=== PATIENT | female | born 2000 | race African-American/Black ===

== ENCOUNTER 2020-09-04 13:56 | Observation (INO) | payer MEDICAID ==
[~2020-09-04] VITALS: Ht 172.7 cm; Wt 71.0 kg
[~2020-09-04 13:56] MED LIST: PROM25AM6 PO
[2020-09-04] MEDS ORDERED: LORazepam 2 MG/ML, 1ML IVPush ONE (14:00)
[2020-09-04] MEDS ORDERED: SODIUM CHLORIDE FLUSH 10ML SYR IVF ONE (14:00)
[2020-09-04] MEDS ORDERED: LORazepam 2 MG/ML, 1ML ONE ×2 (14:07→14:26)
--- NOTE | 2020-09-04 14:09 | NUR ---
REPORT FROM BEAR STALLINGS BIB [facility] AFTER WITNESSED SEIZURE APPROX 3 MIN. PT HAS HX OF SEIZURES AND HAS SEEN NEUROLOGY HOWEVER IS NOT ON ANY ANTI SEIZURE MEDICATIONS AND IS USING [place]. PT IS NOT RESPONDING AT THIS TIME AND DOES NOT FOLLOW COMMANDS. VSS, SPO2 100% ON 2L, O2 TURNED OFF AT THIS TIME. BOYFRIEND AT BEDSIDE. PT ON MONITOR. NO NEEDS AT THIS TIME.
--- NOTE | 2020-09-04 14:27 | NUR ---
STRAIGHT CATH DONE WITH INTERMODAL DISPATCHERLUDWIG TAMEZ, SAMPLE WALKED TO LAB
[2020-09-04 14:28] LABS: BASOPHILS % (AUTO) 1 % (0-1); EOSINOPHILS % (AUTO) 0 % (1-7); LYMPHOCYTES % (AUTO) 38 % (22-44); MEAN CORPUSCULAR HEMOGLOBIN 29.5 pg (27.0-34.8); MEAN CORPUSCULAR HGB CONC 32.5 g/dL (32.4-35.8); MEAN PLATELET VOLUME 12.2 fL (7.4-10.4); MONOCYTES % (AUTO) 8 % (2-9); NEUTROPHILS % (AUTO) 53 % (42-75); PLATELET COUNT 140 x10^3/uL (130-400); RED BLOOD COUNT 4.43 x10^6/uL (3.82-5.3); RED CELL DISTRIBUTION WIDTH 12.9 % (9.6-15.2)
[2020-09-04 14:42] LABS: ALANINE AMINOTRANSFERASE 18 U/L (12-78); ALBUMIN 3.8 g/dL (3.4-5.0); ANION GAP 3 mmol/L (5-15); CALCIUM 9.6 mg/dL (8.5-10.1); CHLORIDE 110 mmol/L (98-107)
--- NOTE | 2020-09-04 14:45 | NUR ---
PT BEGINNING TO AROUSE, PT LOOKED AT RN AND ABLE TO STATE NAME AND THAT SHE DOES NOT KNOW WHERE SHE IS
[2020-09-04 14:47] LABS: ALKALINE PHOSPHATASE 79 U/L (45-117); BILIRUBIN,TOTAL 0.7 mg/dL (0.2-1.0); CREATININE 0.97 mg/dL (0.55-1.02); TOTAL PROTEIN 8.6 g/dL (6.4-8.2)
[2020-09-04 14:54] LABS: MICROSCOPIC NOT IND
[2020-09-04 14:55] LABS: SALICYLATE LEVEL < 1.7 mg/dL (2.8-20.0)
--- NOTE | 2020-09-04 15:04 | NUR ---
PT TO CT
[2020-09-04 15:07] LABS: AMPHETAMINE SCREEN, URINE Negative (Negative); BARBITURATE SCREEN, URINE Negative (Negative); BENZODIAZEPINE SCREEN, URINE Positive (Negative); CANNABINOID SCREEN, URINE Positive (Negative); COCAINE SCREEN, URINE Negative (Negative); METHADONE SCREEN, URINE Negative (Negative); OPIATE SCREEN, URINE Negative (Negative)
[2020-09-04 15:09] LABS: <PLATELET ESTIMATE> ADEQUATE; <RBC MORPHOLOGY> NORMAL; LARGE PLATELETS 1+; MD MORPH REVIEW ONLY
--- NOTE | 2020-09-04 15:21 | NUR ---
PT RETURNED FROM CT ON 2LNC, SPO2 100%. PT TAKEN OFF O2 AGAIN
--- NOTE | 2020-09-04 15:38 | NUR ---
REPORT TO CRIS STALLINGS, PT MOVED TO ROOM 16
--- NOTE | 2020-09-04 16:32 | NUR ---
PT LAYING BACK IN BED, ASLEEP. NAD NOTED AT THIS TIME. VSS. AWAITING NEURO.
--- NOTE | 2020-09-04 16:50 | NUR ---
REPORT TO CHANDRAKANT WIN.
--- NOTE | 2020-09-04 17:01 | NUR ---
TELE ROBOT AT BEDSIDE FOR EVAL
[2020-09-04] MEDS ORDERED: LACTATED RINGERS 1,000 ML IV SCH (18:00)
[2020-09-04 18:26] LABS: HCG UR SG 1.022 (1.003-1.030)
--- NOTE | 2020-09-04 18:34 | NUR ---
PT AWAKE, TALKING WITH RN. NAD NOTED AT THIS TIME. PT USING CELL PHONE. IVF INFUSING PER EMAR. AWAITING ADMISSION BED ASSIGNMENT. SIDE RAILS UP, SZ PADS IN PLACE. CALL LIGHT IN REACH.
--- NOTE | 2020-09-04 19:19 | NUR ---
REPORT TO CHANDRAKANT HOANG.
--- NOTE | 2020-09-04 19:19 | NUR ---
PT AWARE OF STRICT NPO.
--- NOTE | 2020-09-04 19:26 | NUR ---
REPORT FROM JEOVANNY STALLINGS
--- NOTE | 2020-09-04 20:26 | NUR ---
REPORT GIVEN TO ROBBIN STALLINGS
[2020-09-04 21:27] VITALS: BP 110/72
[2020-09-05 01:23] VITALS: BP 109/70
[2020-09-05 05:40] LABS: ANION GAP 5 mmol/L (5-15); CALCIUM 8.7 mg/dL (8.5-10.1); CHLORIDE 109 mmol/L (98-107); CREATININE 0.72 mg/dL (0.55-1.02)
[2020-09-05 07:42] VITALS: BP 113/75
== END 2020-09-05 08:24 | disposition left against medical advice (07) ==
LOC: ED 14:46 → EDIP 17:40 → 5SO 20:41
PROVIDERS: ADMIT Family Medicine; ATTEND Family Medicine
DX: R56.9 Unspecified convulsions (principal); F12.90 Cannabis use, unspecified, uncomplicated; R41.82 Altered mental status, unspecified; Z79.899 Other long term (current) drug therapy
CPT/HCPCS: 36415; 70450; 71045; 80048; 80053; 80307; 81003; 81025; 83605; 83735; 84100; 84443; 85025; 93005; 96360; 96361; 99291; G0378; J7120